=== PATIENT | male | born 1960 | race African-American/Black ===

== ENCOUNTER 2022-04-25 02:15 | Emergency (ER) | payer OTHER ==
[2022-04-25] MEDS ORDERED: CYCL5TAB PO (02:58)
[2022-04-25] MEDS ORDERED: KETO10TA PO (02:58)
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
[2022-04-25] MEDS ORDERED: KETOROLAC 30 MG/ML VIAL IM ONE (03:00)
[2022-04-25 03:17] VITALS: BP 154/81
== END 2022-04-25 03:11 | disposition home or self-care (01) ==
LOC: ER 02:23
DX: M54.31 Sciatica, right side (principal)
CPT/HCPCS: 99284